=== PATIENT | female | born 2005 | race Caucasian/White ===

== ENCOUNTER 2024-01-19 11:55 | Outpatient (CLI) | payer OTHER, SELFPAY ==
--- NOTE | 2024-01-19 11:58 | US_ITS ---
PROCEDURE: US OB >= 14 WEEKS FETUS CLINICAL INDICATION: growth and anatomy COMPARISON: No exams were available for comparison FINDINGS: Transabdominal sonographic images of the pelvis were obtained. From her established due date she is to fetus. Single viable intrauterine gestation. Cephalic position. Placenta: Posteriorplacenta grade 1. There is an average amount of fluid. The cervix appears satisfactory. Closed and measuring 3.6 cm in length. Complete survey performed and was unremarkable on the submitted images as in PACS. No discrete anomalies identified on survey imaging by technologist. Active fetus. Three-vessel cord with satisfactory umbilical cord insertion. 4- chamber heart noted. Situs, aortic arch, LVOT, RVOT, three-vessel view appear normal. A small intracardiac echogenic foci is seen in the left ventricle. Survey of brain & ventricles Unremarkable. Cerebellum, thalamus, choroid plexus, cisterna magna appear normal. Face and neck survey unremarkable. Profile, nasion, lips and nose appeared normal. Diaphragm and chest views unremarkable. Abdomen: Both kidneys noted and unremarkable. Stomach and bladder noted and satisfactory. Spine: Survey of the spine satisfactory with no anomalies identified nor imaged. Cervical, thoracic, lower spine appear normal. Both arms and legs noted. Amniotic Fluid: Adequate. MVP 5.68 cm Measurements: Average ultrasound age 27weeks 6days. Estimated due date by ultrasound age 0304/13/2024. Estimated weight 1,058g BPD = 28weeks 5days HC = 28weeks 2days AC = 26weeks 6days FL = 27weeks 4days Growth Percentile= 39 Heart Rate = 140bpm Cerebellum = 27weeks 3days Humerus = 27weeks 1day HC/AC is 1.16 FL/BPD is 0.72 FL/AC is 0.23 IMPRESSION: 1. Viable fetus in the cephalic presentation with a posterior placenta grade 1. 2. The fluid is within normal limits and MVP 5.68 cm. 3. Anatomical scan appears normal. 4. There is a small intracardiac echogenic foci in the left ventricle. 5. There is a good interval growth with the fetus currently in the 39th percentile. Dictated by: Elliott Red MD 01/20/2024 05:25 Elliott Red MD in OV 01/20/2024 05:25
== END 2024-01-19 23:59 | disposition home or self-care (01) ==
LOC: RAD 11:56
PROVIDERS: Visit Provider Obstetrics & Gynecology
DX: Z34.92 Encounter for supervision of normal pregnancy, unspecified, second trimester (principal); Z3A.27 27 weeks gestation of pregnancy
CPT/HCPCS: 76805; 87086

== ENCOUNTER 2024-02-01 12:07 | Outpatient (CLI) | payer OTHER, SELFPAY ==
[2024-02-01 13:07] LABS: Basophils % 0.2 % (0.1-2.0); Eosinophils % 0.2 % (0.1-12.0); Hematocrit 33.9 % (37.0-47.0); Hemoglobin 11.5 g/dL (12.2-16.2); Lymphocytes # 1.6 K/mm3 (0.7-4.5); Lymphocytes % 15.7 % (10-50); Mean Corpuscular HGB Conc 33.9 g/dL (31.8-35.4); Mean Corpuscular Hemoglobin 30.7 pg (27.0-31.2); Mean Corpuscular Volume 90.6 fl (81-99); Mean Platelet Volume 11.1 fl (7.4-10.4); Neutrophils # 7.8 K/mm3 (1.8-7.8); Neutrophils % 78.1 % (37.0-80.0); Platelet Count 256 K/mm3 (142-424); Red Blood Count 3.74 M/mm3 (4.20-5.40); Red Cell Distribution Width 12.2 % (11.5-17.5)
[2024-02-01 13:08] LABS: Monocytes # 0.5 K/mm3 (0.1-1.0)
[2024-02-01 13:09] LABS: Glucose,Fasting 101 mg/dl (74-100)
[2024-02-01 13:47] LABS: HIV Combo NEGATIVE (Negative)
[2024-02-01 15:20] LABS: Glucose 1 Hour 125 mg/dL (74-100)
[2024-02-03 05:26] LABS: HCV Ab Non Reactive (Non Reactive); Hepatitis B Surface Antigen Negative (Negative)
[2024-02-03 06:23] LABS: Rubella Antibodies, IgG 1.45 index (Immune >0.99)
== END 2024-02-01 23:59 | disposition home or self-care (01) ==
LOC: LAB 12:08
PROVIDERS: Visit Provider Obstetrics & Gynecology
DX: Z34.82 Encounter for supervision of other normal pregnancy, second trimester (principal); Z34.90 Encounter for supervision of normal pregnancy, unspecified, unspecified trimester
CPT/HCPCS: 36415; 82951; 85025; 86762; 86803; 86850; 87340; 87389

== ENCOUNTER 2024-03-15 09:48 | Outpatient (CLI) | payer OTHER, SELFPAY ==
[2024-03-15 10:13] VITALS: BP 140/86; PULSE 97; TEMP 36.9; O2SAT 98; BMI 34.2
[2024-03-15 10:16] VITALS: BP 144/89
[2024-03-15 10:42] VITALS: BP 188/75; PULSE 89; RESP 18; O2SAT 98; BMI 33.4
[2024-03-15 10:47] LABS: Basophils % 0.3 % (0.1-2.0); Eosinophils % 0.3 % (0.1-12.0); Hematocrit 31.1 % (37.0-47.0); Hemoglobin 10.6 g/dL (12.2-16.2); Lymphocytes # 1.9 K/mm3 (0.7-4.5); Lymphocytes % 20.7 % (10-50); Mean Corpuscular HGB Conc 34.1 g/dL (31.8-35.4); Mean Corpuscular Hemoglobin 30.5 pg (27.0-31.2); Mean Corpuscular Volume 89.6 fl (81-99); Mean Platelet Volume 12.7 fl (7.4-10.4); Monocytes # 0.5 K/mm3 (0.1-1.0); Monocytes % 5.8 % (1.7-9.3); Neutrophils # 6.8 K/mm3 (1.8-7.8); Neutrophils % 72.5 % (37.0-80.0); Platelet Count 177 K/mm3 (142-424); Red Blood Count 3.47 M/mm3 (4.20-5.40); White Blood Count 9.4 K/mm3 (4.5-13.0)
[2024-03-15 11:02] LABS: Alanine Aminotransferase 18 U/L (12-78); Albumin Level 3.3 g/dl (3.5-5.0); Albumin/Globulin Ratio 1.3 (1.1-1.8); Alkaline Phosphatase 202 U/L (38-126); Anion Gap 8.7 mEq/L (5-15); Aspartate Amino Transferase 27 U/L (14-36); Bilirubin,Total 0.2 mg/dl (0.2-1.3); Blood Urea Nitrogen 4 mg/dl (7-17); Calcium 9.3 mg/dl (8.4-10.2); Carbon Dioxide 21 mmol/L (22.0-30.0); Chloride 108 mmol/L (98-107); Creatinine Clearance Estimated 335 mL/min (50-200); Estimated Glomerular Filt Rate 206 ml/min (>60); GFR (African American) 249 ML/MIN (>60); Globulin 2.5 g/dL (1.3-3.2); Glucose 88 mg/dl (74-100); Potassium 3.7 mmoL/L (3.5-5.1); Sodium 134 mmol/L (136-145); Total Protein,Serum 5.8 g/dl (6.3-8.2); Uric Acid 3.8 mg/dl (2.5-6.2)
[2024-03-15 11:02] LABS: Microscopic, Urine URINE MICROSCOPIC (MICROSCOPIC)
[2024-03-15 11:06] LABS: Appearance,Urine CLEAR (Clear); Bilirubin,Urine Negative (Negative); Blood, Urine Negative (Negative); Color,Urine YELLOW (Yellow); Glucose,Urine (UA) Negative (Negative); Ketones,Urine Negative (Negative); Leukocyte Esterase,Urine TRACE (Negative); Nitrate,Urine Negative (Negative); Protein,Urine Negative (Negative); Urobilinogen,Urine 0.2 EU/dl (0.2)
[2024-03-15 11:19] LABS: Bacteria,Urine Trace /lpf; Squamous Epithelial Cell,Urine Occasional #/hpf (0-5); WBC,Urine Occasional #/hpf (0-3)
[2024-03-15 11:22] LABS: Amphetamine/Metha Screen,Urine Negative ng/ml (<1000); Barbiturates Screen,Urine Negative ng/ml (<200); Benzodiazepines Screen,Urine Negative ng/ml (<200); Cannabinoid Screen,Urine Positive ng/ml (<50); Cocaine Screen,Urine Negative ng/ml (<300); Methadone Screen,Urine Negative ng/ml (<300); Opiate Screen,Urine Negative ng/ml (<300); Phencyclidine Screen,Urine Negative ng/ml (<25)
[2024-03-15 11:32] LABS: Creatinine,Urine Random 50 mg/dL (Not Estab.)
[2024-03-15] MEDS: LABETALOL 100MG TABLET 200 MG PO (11:47)
[2024-03-15 11:48] LABS: Activated Partial Thrombo Time 20.7 seconds (22.5-28.5); INR 0.83 (0.9-1.1); Prothrombin Time 9.3 seconds (9.2-12.1)
[2024-03-15 11:52] LABS: Fibrinogen 402 mg/dL (208.1-352.0)
[2024-03-15] MEDS: BETAMETHASONE ACET/PHOS 6MG/ML 5ML MDV 12 MG IM (12:32)
== END 2024-03-15 14:04 | disposition home or self-care (01) ==
LOC: OBOUT 09:50 → OB 09:51
PROVIDERS: Visit Provider Obstetrics & Gynecology
DX: O26.893 Other specified pregnancy related conditions, third trimester (principal); R03.0 Elevated blood-pressure reading, without diagnosis of hypertension; Z3A.35 35 weeks gestation of pregnancy
CPT/HCPCS: 80053; 80307; 81001; 82570; 84156; 84550; 85025; 85384; 85610; 85730; G0463; J0702

== ENCOUNTER 2024-03-16 13:13 | Outpatient (CLI) | payer OTHER, SELFPAY ==
[2024-03-16 16:00] LABS: Total Volume,Urine 1850 mL (600-1600)
[2024-03-16 16:04] LABS: Total Protein 24 Hour,Urine 130 mg/24 hr (40-90)
== END 2024-03-16 23:59 | disposition home or self-care (01) ==
LOC: LAB 13:14
PROVIDERS: Nurse Practitioner Obstetrics & Gynecology; Visit Provider Obstetrics & Gynecology
DX: O13.9 Gestational [pregnancy-induced] hypertension without significant proteinuria, unspecified trimester (principal)
CPT/HCPCS: 84155

== ENCOUNTER 2024-03-16 13:29 | Outpatient (CLI) | payer OTHER, SELFPAY ==
[2024-03-16 13:43] VITALS: BP 124/73; PULSE 86; RESP 19; TEMP 36.7; O2SAT 98; BMI 33.4
[2024-03-16] MEDS: BETAMETHASONE ACET/PHOS 6MG/ML 5ML MDV 12 MG IM (14:02)
[2024-03-16 14:06] VITALS: BP 128/80
== END 2024-03-16 14:06 | disposition home or self-care (01) ==
LOC: OBOUT 13:31 → OB 13:31
PROVIDERS: Visit Provider Obstetrics & Gynecology
DX: O26.893 Other specified pregnancy related conditions, third trimester (principal); R03.0 Elevated blood-pressure reading, without diagnosis of hypertension; Z3A.35 35 weeks gestation of pregnancy
CPT/HCPCS: 96372; J0702

== ENCOUNTER 2024-03-18 16:44 | Outpatient (CLI) | payer OTHER, SELFPAY | END 2024-03-18 23:59 | disposition home or self-care (01) | LOC: LAB.DROPOF 16:44 | PROVIDERS: PCP Obstetrics & Gynecology; Visit Provider Obstetrics & Gynecology | DX: O99.210 Obesity complicating pregnancy, unspecified trimester (principal) | CPT/HCPCS: 86403 ==

== ENCOUNTER 2024-03-28 15:17 | Inpatient (IN) | payer OTHER, SELFPAY ==
[2024-03-28 15:25] VITALS: BMI 32.3
--- NOTE | 2024-03-28 15:26 | P.CONPHA_ITS ---
Pharmacy Intervention Comments: MEDICATION RECONCILIATION COMPLETED ON PATIENT USING EXTERNAL FILL HISTORY FROM PHARMACY AND LIST FROM ORTHOTICS ASSISTANT. -SUZANNE MONTAGUE, LESVIAD
--- NOTE | 2024-03-28 15:26 | HMH.PHAINT1 ---
Pharmacy Intervention Comments: MEDICATION RECONCILIATION COMPLETED ON PATIENT USING EXTERNAL FILL HISTORY FROM PHARMACY AND LIST FROM CONSUMER INSIGHTS INTERN. -SUZANNE MONTAGUE, LESVIAD
[2024-03-28 15:42] VITALS: BP 142/87; PULSE 118; RESP 19; TEMP 36.6; O2SAT 100; BMI 32.3
[2024-03-28 16:31] LABS: Microscopic, Urine URINE MICROSCOPIC (MICROSCOPIC)
[2024-03-28 16:33] LABS: Appearance,Urine CLEAR (Clear); Bilirubin,Urine Negative (Negative); Blood, Urine Negative (Negative); Color,Urine YELLOW (Yellow); Glucose,Urine (UA) Negative (Negative); Ketones,Urine Negative (Negative); Leukocyte Esterase,Urine 2+ (Negative); Nitrate,Urine Negative (Negative); Protein,Urine Negative (Negative); Urobilinogen,Urine 0.2 EU/dl (0.2)
[2024-03-28 16:36] LABS: Basophils % 0.2 % (0.1-2.0); Eosinophils % 0.2 % (0.1-12.0); Hematocrit 31.6 % (37.0-47.0); Hemoglobin 10.3 g/dL (12.2-16.2); Lymphocytes # 1.6 K/mm3 (0.7-4.5); Lymphocytes % 17.5 % (10-50); Mean Corpuscular HGB Conc 32.6 g/dL (31.8-35.4); Mean Corpuscular Hemoglobin 30.1 pg (27.0-31.2); Mean Corpuscular Volume 92.4 fl (81-99); Mean Platelet Volume 12.4 fl (7.4-10.4); Monocytes # 0.6 K/mm3 (0.1-1.0); Monocytes % 5.9 % (1.7-9.3); Neutrophils # 7.1 K/mm3 (1.8-7.8); Neutrophils % 75.7 % (37.0-80.0); Platelet Count 226 K/mm3 (142-424); Red Blood Count 3.42 M/mm3 (4.20-5.40); Red Cell Distribution Width 12.5 % (11.5-17.5); White Blood Count 9.4 K/mm3 (4.5-13.0)
[2024-03-28] MEDS: LABETALOL 100MG TABLET 200 MG PO (16:39)
[2024-03-28 16:44] LABS: Benzodiazepines Screen,Urine Negative ng/ml (<200)
[2024-03-28 16:45] LABS: Amphetamine/Metha Screen,Urine Negative ng/ml (<1000)
[2024-03-28 16:46] LABS: Barbiturates Screen,Urine Negative ng/ml (<200); Cannabinoid Screen,Urine Positive ng/ml (<50)
[2024-03-28 16:47] LABS: Cocaine Screen,Urine Negative ng/ml (<300)
[2024-03-28 16:48] LABS: Methadone Screen,Urine Negative ng/ml (<300); Opiate Screen,Urine Negative ng/ml (<300)
[2024-03-28 16:49] LABS: Phencyclidine Screen,Urine Negative ng/ml (<25)
[2024-03-28 16:58] LABS: Bacteria,Urine 1+ /lpf
[2024-03-28 19:40] VITALS: BP 121/73; PULSE 79; RESP 18; TEMP 36.7; O2SAT 98
[2024-03-28 22:17] LABS: RPR W/RFX Titers Nonreactive (Nonreactive)
[2024-03-28] MEDS: miSOPROStol 100MCG TABLET 50 MCG PO (23:03)
[2024-03-29] MEDS: DEXTROSE 5%-LACTATED RINGERS 1,000 ML 125 ML IV (04:28)
[2024-03-29] MEDS: LACTATED RINGERS 1000ML 1,000 ML 999 ML IV (04:29)
[2024-03-29] MEDS: OXYTOCIN/RINGERS LACTATE 30 UNITS/500 ML BAG IV (04:39)
[2024-03-29] MEDS: ONDANSETRON 4MG/2ML VIAL 4 MG IV ×2 (06:24→14:30)
[2024-03-29 08:08] VITALS: BP 137/84; PULSE 68; RESP 18; TEMP 36.6; O2SAT 99
[2024-03-29] MEDS: LABETALOL 100MG TABLET 200 MG PO ×2 (08:11→20:35)
[2024-03-29] MEDS: BUTORPHANOL TARTRATE 1 MG/ML VIAL IV (08:42)
--- NOTE | 2024-03-29 08:52 | P.HP_ITS ---
OB - H&P: HPI Antepartum History of Present Illness Chief complaint: Scheduled induction of labor History of present illness: Ms Jenni Mccauley is a 18 yo at 37w2d who presents to [facility] L&D for scheduled induction of labor secondary to gestational hypertension. She has had good care. She was a transfer care at 27 weeks from [facility]. She was started on Labetalol 200 mg PO BID on 03/15/24 for GHTN. Baby is active. She is feeling well. Denies headaches and vision changes. History of Present Criteria for establishing EDC:: based on 1st trimester US only care: good care Ultrasounds: normal mid trimester US Obstetrical complications: gestational hypertension Medical complications: none Labs Blood type: O (+) positive Rubella: immune RPR/VDRL: nonreactive GBS status: negative [facility]AG: [facility] Disclaimer: The information contained in this section may have been updated after the patient was seen, as this information can be updated by other users. Medical History (Updated 03/29/24 @ 09:10 by Danita Butcher DO) Encounter for induction of labor UTI in , antepartum Gestational hypertension Heartburn during Maternal obesity affecting , antepartum History of miscarriage Surgical History Hx of wisdom tooth extraction Family History Other No significant family history Social History (Updated 03/28/24 @ 16:54 by Wolf Evans RN) Smoking Status: Never smoker alcohol intake: never current occupational status: unemployed Travel in the last 8 weeks: None Have you lived/traveled outside US in past 30 days?: No Contact w/someone who lives/traveled outside US past 30 days?: No Exposure to someone with infectious disease in past 14 days?: No Do you have a fever (greater than 100.4 F or 38 C)?: No Have you tested positive for COVID-19: No Exposed to someone with COVID-19 in past 14 days?: No Do you have a sore throat?: No Do you have a cough?: No Do you have any weakness?: No Are you experiencing any nausea/vomitting?: No Do you have any diarrhea?: No Are you experiencing any unusual bleeding?: No Do you have any muscle aches/pain?: No Do you have any abdominal pain?: No Are you experiencing loss of taste or smell?: No Other Medical History Have you received the Flu Vaccine for this season: No Have you received the Pneumonia Vaccine: No Review of Systems Review of Systems Review of systems:: pertinent systems reviewed and negative unless documented below Meds Home Medications and Allergies Home Medications ?Medication ?Instructions ?Recorded ?Confirmed ?Type vits no.126-ferrous fum 1 tab PO DAILY 01/19/24 03/28/24 History 28 mg iron-folic acid 800 mcg tablet (Classic ) famotidine 20 mg tablet (Pepcid) 20 mg PO BID #60 tabs 02/01/24 03/28/24 Rx labetalol 200 mg tablet 200 mg PO BID #60 tabs 03/15/24 03/28/24 Rx New Prescriptions to Start Prescriptions: Allergies Allergy/AdvReac Type Severity Reaction Status Date / Time prednisone Allergy Severe BLISTERS Verified 03/22/24 11:20 amoxicillin Allergy Mild Hives Verified 03/22/24 11:20 penicillin G Allergy Mild Unknown Verified 03/22/24 11:20 allergy reaction OB - H&P: Exam Physical Exam Vital signs: Temp Pulse Resp BP Pulse Ox O2 Del Method 98.1 F 79 18 121/73 98 Room Air 03/28/24 19:40 03/28/24 19:40 03/28/24 19:40 03/28/24 19:40 03/28/24 19:40 03/28/24 19:40 Constitutional no acute distress and cooperative Routine HEENT Exam Head: Present normocephalic and atraumatic Eye: Absent conjunctivae pink ENT: Present mucous membranes moist Routine Neck Exam Present full ROM Routine Respiratory Exam Present CTA bilaterally and normal respiratory effort Routine Cardiovascular Exam Present RRR Routine Abdominal Exam Present soft (Gravid); Absent tenderness Routine Rectal Exam Patient deferred: visual exam Routine Exam External: Present normal urethra appearance; Absent erythema, swelling, tenderness, lesions or lacerations Routine Extremities Exam Present full ROM; Absent edema or calf tenderness Routine Neurological Exam Present alert, moving all extremities and normal speech Routine Psychiatric Exam Present normal affect and cooperative Detailed Labor and Delivery Exam Dilation (cm): 3 Effacement (%): 80 Cervix position: mid station: -2 Consistency: soft Membranes: artificially ruptured (Amniotomy performed at 0805 with amnihook without difficulty) Amniotic fluid: clear Baseline heart rate: 120 monitor accelerations: Present monitor decelerations: None 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: Moderate (11-25) Contraction frequency (min): 3 Tachysystole: No OB - Results Labs Labs: Short CBC 03/28/24 Range/Units 16:21 WBC 9.4 (4.5-13.0) K/mm3 Hgb 10.3 L (12.2-16.2) g/dL Hct 31.6 L (37.0-47.0) % Plt Count 226 (142-424) K/mm3 Urine 03/28/24 Range/Units 15:25 Urine Color Yellow (Yellow) Urine Appearance Clear (Clear) Urine pH 7.0 (5.0-8.5) Ur Specific [place] 1.010 (1.005-1.030) Urine Protein Negative (Negative) Urine Glucose (UA) Negative (Negative) OB - A/P Antepartum (1) Encounter for induction of labor: Status: Acute (2) Gestational hypertension: Status: Acute (3) Maternal obesity affecting , antepartum: Status: Acute Additional Plan Planning to breastfeed?: Yes Additional Information:: Admit to L&D for induction of labor with Cytotec followed by Pitocin GBS negative Continue labetalol Close monitoring Anticipate
--- NOTE | 2024-03-29 09:52 | EXP.ANES.CKL ---
[facility] Disclaimer: The information contained in this section may have been updated after the patient was seen, as this information can be updated by other users. Medical History (Updated 03/29/24 @ 09:10 by Danita Butcher DO) Encounter for induction of labor UTI in , antepartum Gestational hypertension Heartburn during Maternal obesity affecting , antepartum History of miscarriage Surgical History Hx of wisdom tooth extraction Family History Other No significant family history Social History (Updated 03/28/24 @ 16:54 by Wolf Evans RN) Smoking Status: Never smoker alcohol intake: never substance use type: denies use current occupational status: unemployed Travel in the last 8 weeks: None [facility] Anesthesia Checklist Patient Identification Patient Identification: Arm Band Structural Data Admitted From: Home Planned Operative Procedure/s: Labor Epidural Consent for Planned Operative Procedure(s) Verified: Yes Verified Documents: Surgical Consent and History and Physical NPO Status Verified Time NPO: 00:00 Neurological Assessment Level of Consciousness: Awake, Alert and Appropriate Anesthesia Plan Anesthesia Risk discussed: Yes Anesthesia Plan: Verified ASA Class: II Anesthesia Type: Epidural
[2024-03-29] MEDS: OXYTOCIN/RINGERS LACTATE 30 UNITS/500 ML BAG 999 UNITS IV (12:39)
--- NOTE | 2024-03-29 12:54 | EXP.DN ---
Delivery Note Delivery Date:: 03/29/24 Delivery Time:: 12:35 Anesthesia Type: Epidural Was labor medically induced?: Yes Induction method: per misoprostol protocol Gestational age (weeks): 37 Infant delivered prior to 39 weeks?: Yes Justification for early elective delivery:: Gestational Hypertension Infant Gender: Male at 1 minute: 9 at 5 minutes: 9 Delivery Procedure:: Mom complete with epidural. Pushed for approximately 18 minutes. Head delivered spontaneously over intact perineum in KELLEE position. No nuchal cord. Anterior shoulder delivered with gentle downward pressure. Posterior shoulder and remainder of body delivered spontaneously. Baby placed on maternal abdomen, mouth and nares bulb suctioned, warmed/dried and stimulated. Delayed cord clamping was performed for 60 seconds. Cord was clamped and cut by grandmother of baby. Cord blood was obtained. Placenta delivered spontaneously and intact. Placenta will be sent to pathology for review. First degree perineal laceration repaired with 3-0 Vicryl. Hemostasis noted. Bilateral periurethral abrasions were hemostatic. Mom and baby were skin to skin and doing well after delivery. Live male baby (baby's name is Mayur) APGARs 9 (1 min), 9 (5 min) EBL 200 mL Placental Delivery Description: Spontaneous
[2024-03-29] MEDS: OXYTOCIN/RINGERS LACTATE 30 UNITS/500 ML BAG 40 UNITS IV (12:56)
[2024-03-29] MEDS: PRENATAL MULTIVITAMIN W/IRON 1 EACH PO (15:34)
[2024-03-29] MEDS: WITCH HAZEL 40 PADS/BOX 1 EACH TP (15:34)
[2024-03-29] MEDS: BENZOCAINE-MENTHOL SPRAY 56GM CAN TP (15:34)
[2024-03-29 16:45] VITALS: BP 134/72; PULSE 72; RESP 18; TEMP 36.9; O2SAT 99
[2024-03-29] MEDS: IBUPROFEN 400 MG TABLET 800 MG PO (17:49)
[2024-03-29] MEDS: ACETAMINOPHEN 500MG TAB 1000 MG PO (17:50)
[2024-03-29 20:44] VITALS: BP 128/80; PULSE 84; RESP 18; TEMP 36.8; O2SAT 98
[2024-03-30] MEDS: ACETAMINOPHEN 500MG TAB 1000 MG PO (02:10)
[2024-03-30 05:45] VITALS: BP 112/69; PULSE 64; RESP 17; TEMP 36.6; O2SAT 97
[2024-03-30 07:49] LABS: Basophils % 0.4 % (0.1-2.0); Eosinophils % 0.2 % (0.1-12.0); Hematocrit 26.8 % (37.0-47.0); Lymphocytes # 1.9 K/mm3 (0.7-4.5); Lymphocytes % 19.8 % (10-50); Mean Corpuscular HGB Conc 33.6 g/dL (31.8-35.4); Mean Corpuscular Volume 89.3 fl (81-99); Mean Platelet Volume 11.7 fl (7.4-10.4); Monocytes # 0.7 K/mm3 (0.1-1.0); Monocytes % 7.4 % (1.7-9.3); Neutrophils # 6.8 K/mm3 (1.8-7.8); Neutrophils % 71.6 % (37.0-80.0); Platelet Count 196 K/mm3 (142-424); Red Cell Distribution Width 12.6 % (11.5-17.5); White Blood Count 9.6 K/mm3 (4.5-13.0)
--- NOTE | 2024-03-30 08:15 | PC.NURSE ---
Addendum entered by Wolf Evans RN 03/30/24 09:57: Web ID #[id number] Addendum entered by Wolf Evans RN 03/30/24 09:55: 0908- RADHA Andersen called to report the case DOES MEET CRITERIA for further investigation under the AR (Alternative Response Pathway). Pt is good to D/C home, DCBS worker will be calling the pt for more information to f/u at home with the pt and the NB Addendum entered by Wolf Evans RN 03/30/24 09:53: 0857- RADHA Andersen instruction assistant principalmanager call for [facility] called to gather more information on the case. DC[employer] worker contact info [phone]. Megan reports she will call back after she speaks with her supervisor vine fruit [employer] regarding the case to notify staff of the POC Original Note: 0874- Spoke with Dilma from [facility] to report pts positive UDS for THC for multiple visits and on admission for 03/28/2024. NB (Mayur Maza) UDS was also positive for THC and is starting to have s/s of CASE withdraw (mild disturbed tremors and increased muscle tone). Pt admits to smoking THC in the beginning of but not to current use. Pt reports vaping during and heavy caffeine intake. Pt, NB,and FOB plan to d/c home with a family member for extra support. 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 Dilma reports staff will receive an email with web ID # once the system is back up.
[2024-03-30 08:42] VITALS: BP 125/79; PULSE 87; RESP 18; TEMP 36.5; O2SAT 97
[2024-03-30] MEDS: LABETALOL 100MG TABLET 200 MG PO (08:45)
--- NOTE | 2024-03-30 11:14 | EXP.DC.SUM ---
General Admission date:: 03/28/24 Discharge date: 03/30/24 HPI HPI HPI: PPD # 1 s/p Feeling well. Pain controlled. Breast and formula feeding. Lochia is appropriate. Voiding without difficulty and passing flatus. Tolerating regular diet. Denies fever/chills, chest pain and shortness of breath. No headaches, vision changes, lightheadedness/dizziness. No lower extremity swelling. Ambulating well ad robert. Hospital Course Hospital Course Hospital Course: Ms Jenni Mccauley is a 18 yo at 37w2d who presents to [facility] L&D for scheduled induction of labor secondary to gestational hypertension. She has had good care. She was a transfer care at 27 weeks from [facility]. She was started on Labetalol 200 mg PO BID on 03/15/24 for GHTN. Baby is active. She is feeling well. Denies headaches and vision changes. She underwent induction of labor with Cytotec followed by Pitocin. She delivered a live male baby, Mayur, weighing 7lb 5 oz. APGARs 9 (1 min), 9 (5 min). EBL 200 mL. She did well . Pain controlled. Breast and formula feeding. Light lochia. Voiding without difficulty and passing flatus. Tolerating regular diet. Denies fever/chills, chest pain and shortness of breath. No headaches, dizziness/lightheadedness or vision changes. Vital signs stable, afebrile. Heart regular rate and rhythm. Lungs clear to auscultation. Abdomen soft, nontender. No lower extremity swelling. Ambulating well ad robert. Normal hospital course. She was discharged to home on POD # 1 with instructions to follow-up in the office in 2 weeks or sooner if needed. Exam Data for Last 24 hours Vital signs and Labs for Last 24 Hours: Temp Pulse Resp BP Pulse Ox O2 Del Method 97.7 F 87 18 125/79 97 Room Air 03/30/24 08:42 03/30/24 08:42 03/30/24 08:42 03/30/24 08:42 03/30/24 08:42 03/30/24 08:42 Laboratory Results - last 24 hr 03/30/24 07:39: WBC 9.6, RBC 3.00 L, Hgb 9.0 L, Hct 26.8 L, MCV 89.3, MCH 30.0, MCHC 33.6, RDW 12.6, Plt Count 196, MPV 11.7 H, Neut % (Auto) 71.6, Lymph % (Auto) 19.8, [place] % (Auto) 7.4, Eos % (Auto) 0.2, Baso % (Auto) 0.4, Neut # (Auto) 6.8, Lymph # (Auto) 1.9, [place] # (Auto) 0.7, Eos # (Auto) 0.0, Baso # (Auto) 0.0 I & O for Last 24 hours: Intake & Output 03/27/24 03/28/24 03/29/24 03/30/24 23:59 23:59 23:59 23:59 Weight 200 lb Microbiology Reports for the Last 24 Hours: Microbiology 03/28/24 15:25 Urine,Clean Catch Urine Culture - Final No growth. Constitutional Constitutional: no acute distress and cooperative *Routine HEENT Exam Head: Present normocephalic and atraumatic Eye: Absent conjunctivae pink ENT: Present mucous membranes dry *Routine Neck Exam Neck: Present full ROM *Routine Respiratory Exam Respiratory: Present CTA bilaterally and normal respiratory effort *Routine Cardiovascular Exam Cardiovascular: Present RRR *Routine Abdominal Exam Abdominal: Present soft; Absent tenderness Comments: Uterine fundus firm and below umbilicus *Routine Rectal Exam Patient deferred: visual exam *Routine Exam Patient deferred: external exam *Routine Extremities Exam Extremities: Present full ROM; Absent edema or calf tenderness *Routine Neurological Exam Neurological: Present alert, moving all extremities and normal speech Routine Psychiatric Exam Psychiatric: Present normal affect and cooperative Results Data Completed and Pending Labs on day of discharge: Labs from last 24 hours 03/30/24 07:39 WBC 9.6 RBC 3.00 L Hgb 9.0 L Hct 26.8 L MCV 89.3 MCH 30.0 MCHC 33.6 RDW 12.6 Plt Count 196 MPV 11.7 H Neut % (Auto) 71.6 Lymph % (Auto) 19.8 [place] % (Auto) 7.4 Eos % (Auto) 0.2 Baso % (Auto) 0.4 Neut # (Auto) 6.8 Lymph # (Auto) 1.9 [place] # (Auto) 0.7 Eos # (Auto) 0.0 Baso # (Auto) 0.0 DS: Diagnosis Discharge Diagnosis (1) Status post normal vaginal delivery: Status: Acute (2) Encounter for induction of labor: Status: Acute Code(s): Z34.90 - Encounter for supervision of normal , unspecified, unspecified trimester (3) Gestational hypertension: Status: Acute Code(s): O13.9 - Gestational [-induced] hypertension without significant proteinuria, unspecified trimester Qualifiers: Trimester: third trimester Qualified Code(s): O13.3 - Gestational [-induced] hypertension without significant proteinuria, third trimester (4) Maternal obesity affecting , antepartum: Status: Acute Code(s): O99.210 - Obesity complicating , unspecified trimester Qualifiers: Obesity type affecting : unspecified obesity Qualified Code(s): O99.210 - Obesity complicating , unspecified trimester Meds Home Medications and Allergies Home Medications ?Medication ?Instructions ?Recorded ?Confirmed ?Type vits no.126-ferrous fum 1 tab PO DAILY 01/19/24 03/28/24 History 28 mg iron-folic acid 800 mcg tablet (Classic ) famotidine 20 mg tablet (Pepcid) 20 mg PO BID #60 tabs 02/01/24 03/28/24 Rx labetalol 200 mg tablet 200 mg PO BID #60 tabs 03/15/24 03/28/24 Rx ibuprofen 800 mg tablet 800 mg PO Q8H PRN pain #20 tabs 03/30/24 Rx New Prescriptions to Start Prescriptions: Danita Smith Allergies Allergy/AdvReac Type Severity Reaction Status Date / Time prednisone Allergy Severe BLISTERS Verified 03/22/24 11:20 amoxicillin Allergy Mild Hives Verified 03/22/24 11:20 penicillin G Allergy Mild Unknown Verified 03/22/24 11:20 allergy reaction Discharge Plan Disposition Patient Disposition: Home, Self-Care Condition: Good Discharge Order Discharge Orders: Discharge Order (Routine); Ordered 03/30/24 Ordered By: Danita Butcher Follow up Plan Follow up with: Danita Butcher DO [Staff Physician] - 04/12/24 2:45 pm Prescriptions/Medication Reconciliation: New ibuprofen 800 mg tablet 800 mg PO Q8H PRN (Reason: pain) Qty: 20 0RF Continued Classic 28 mg iron- 800 mcg tablet 1 tab PO DAILY famotidine [Pepcid] 20 mg tablet 20 mg PO BID Qty: 60 2RF labetalol 200 mg tablet 200 mg PO BID Qty: 60 1RF Problem Reconciliation Problems Reviewed?: Yes Patient Discharge Instructions ACTIVITY: Limited activity DIET: continue same diet and regular diet Additional Instructions: Congratulations!! Discharge: 1. Take 800 mg Ibuprofen every 8 hours as needed for pain. You can also take 500-1000 mg of Tylenol in between doses, every 6-8 hours. 2. Nothing in the vagina for 6 weeks - no intercourse, douching or tampons. No tub baths/hot tubs or swimming pools 3. Reasons to return to L&D or call On-Call doctor - fever (greater than 100.4) - heavy vaginal bleeding (soaking through 1 pad in less than 2 hours) - vaginal discharge (malodorous and/or purulent) - severe headaches not resolved by medication or rest and leg tenderness/edema 4. depression/blues - Normal to feel anxious/overwhelmed for first 2 weeks - Talk to your doctor if: severe anxiety, trouble bonding with baby, withdrawing from other family members, thoughts of harming yourself or others Danita Butcher DO [facility] [phone] Patient Instructions: Depression, Hemorrhage, DI for Labor and Delivery, Vaginal , DI for Pre-eclampsia, [facility] Post Discharge Instructions Print Language: Turkish Providers Primary Care Provider: Provider,Referral Admit Provider: Elliott Red Attending Provider: Elliott Red
== END 2024-03-30 17:50 | disposition home or self-care (01) | DRG 807 ==
PROVIDERS: Obstetrics & Gynecology; Admitting Provider Nurse Practitioner Obstetrics & Gynecology; Visit Provider Nurse Practitioner Obstetrics & Gynecology
DX: O13.4 Gestational [pregnancy-induced] hypertension without significant proteinuria, complicating childbirth (principal); Z37.0 Single live birth; Z3A.39 39 weeks gestation of pregnancy; O70.0 First degree perineal laceration during delivery; O99.214 Obesity complicating childbirth; E66.9 Obesity, unspecified
CPT/HCPCS: 36415; 59025; 80307; 81001; 85025; 86592; 86850; 87086; 94761; G0283; J0595; J2405; J3010; J7120